=== PATIENT | male | born 1965 ===

== ENCOUNTER → 2016-04-17 | Day surgery (SDC) | payer BC ==
[~2016-04-17] VITALS: Ht 177.8 cm; Wt 79.4 kg
[2016-04-17] VITALS (13 sets, daily range): BP systolic 112–143; BP diastolic 67–82
[~2016-04-17] MED LIST: Dexamethasone 4mg/ml vial ONE; EPINEPHrine 1mg/1ml Amp ONE; Hydrogen Peroxide 120ml Bottle TOPIC ONE; LR 1000ml 1,000 ML IV SCH; LR 1000ml 1,000 ML IVLG SCH; LR 1000ml ONE; Midazolam 2mg/2ml Inj ONE; NKM; NS Irrig 1000ml ONE; Propofol 10mg/ml 20ml IV ONE; Ropivacaine 5mg/ml Vial 20ml INJ ONE; Sterile Water Irrig 1000ml IRRIG ONE; Zemuron 50mg/5ml Inj IV ONE; cefOXitin 1gm Inj ONE; fentaNYL 100 mcg/2 mL IV ONE
--- NOTE | 2016-04-17 09:17 | Pre-Procedure Note/Attestation ---
Pre-Procedure Note/Attestation Complete Prior to Procedure Planned Procedure: not applicable Procedure Narrative: Exam under anesthesia, anal fistulotomy, possible ligation of fistula tract, possible hemorrhoidectomy Indications for Procedure Pre-Operative Diagnosis: Xhsbynv-yc-alx Attestation I attest that I discussed the nature of the procedure; its benefits; risks and complications; and alternatives (and the risks and benefits of such alternatives ), prior to the procedure, with the patient (or the patient's legal membership sales representative). I attest that, if there was a reasonable possibility of needing a blood transfusion, the patient (or the patient's legal membership sales representative) was given the [facility] standardized written summary, pursuant to the [place] Blood Safety Act ([place] Health and Safety Code # 1645, as amended). I attest that I re-evaluated the patient just prior to the surgery and that there has been no change in the patient's H&P, except as documented below: ZHENG ORTEGA Apr 17, 2016 09:17
--- NOTE | 2016-04-17 10:00 | Anethesia Preoperative Eval ---
Anesthesia Pre-op PMH/ROS General Date of Evaluation: Apr 17, 2016 Time of Evaluation: 09:10 Anesthesiologist: Agustin ASA Score: ASA 1 Mallampati Score Class I : Soft palate, uvula, fauces, pillars visible Class II: Soft palate, uvula, fauces visible Class III: Soft palate, base of uvula visible Class IV: Only hard plate visible Mallampati Classification: Class II Surgeon: Vida Diagnosis: Anal fissure Surgical Procedure: Ligation of anal fistula Allergies: Coded Allergies: NO KNOWN ALLERGIES (Verified Allergy, Unknown, 02/27/16) Medications: see eMAR Past Medical History Cardiovascular: Denies: CAD, HTN, [place], arrhythmia, other, valve dz Pulmonary: Denies: COPD, DAPHNE, asthma, other Gastrointestinal/Genitourinary: Denies: CRI, ESRD, GERD, other Neurologic/Psychiatric: Denies: CVA, TIA, dementia, depression/anxiety, other Endocrine: Denies: DM, hypothyroidism, other, steroids HEENT: Denies: ROBINSON (L), ROBINSON (R), cataract (L), cataract (R), glaucoma, other Hematology/Immune: Denies: DVT, anemia, bleeding disorder, other Musculoskeletal/Integumentary: Denies: DDD, DJD, OA, RA, edema, other PMH Narrative: Denies PSxH Narrative: Anal surgery Anesthesia Pre-op Phys. Exam Physician Exam Last Vital Signs Date Time Temp Pulse Resp B/P Pulse Ox O2 Delivery O2 Flow Rate FiO2 04/17/16 08:38 97.7 56 18 124/75 96 Room Air Constitutional: NAD Neurologic: CN 2-12 intact Cardiovascular: RRR, no M/R/G Respiratory: CTA Gastrointestinal: S/NT/ND Airway Exam Mallampati Score: Class II MO: full ROM: full Teeth: intact Anesthesia Pre-op A/P Labs No contraindication Risk Assessment & Plan Assessment: Healthy male Plan: GETA, prone Status Change Before Surgery: No Pre-Antibiotics Drug: Cefoxitin Given Within 1 Hr of Incision: Yes Time Given: 09:30 INGA ROB M.D. Apr 17, 2016 10:00
--- NOTE | 2016-04-17 10:01 | Immediate Post-Op Evaluation ---
Immediate Post-Op Evalulation Immediate Post-Op Evalulation Procedure: Ligation of anal fistula Date of Evaluation: Apr 17, 2016 Time of Evaluation: 11:05 IV Fluids: 625 Blood Pressure Systolic: 143 Blood Pressure Diastolic: 82 Pulse Rate: 87 Respiratory Rate: 10 O2 Sat by Pulse Oximetry: 98 Temperature (Fahrenheit): 97.2 Pain Score (1-10): 0 Nausea: No Vomiting: No Complications No complication Patient Status: awake, patent, extubated, none Hydration Status: adequate Drug: Cefoxitin Given Within 1 Hr of Incision: Yes Time Given: 09:30 INGA ROB M.D. Apr 17, 2016 10:01
--- NOTE | 2016-04-17 11:02 | 48 Hour Post Anesthesia Eval ---
Post Anesthesia Evaluation Procedure: Ligation of anal fistula Date of Evaluation: Apr 17, 2016 Time of Evaluation: 11:30 Blood Pressure Systolic: 133 0: 71 Pulse Rate: 88 Respiratory Rate: 15 O2 Sat by Pulse Oximetry: 100 Airway: patent Nausea: No Vomiting: No Pain Intensity: 0 Hydration Status: adequate Cardiopulmonary Status: Stable Mental Status/LOC: patient returned to baseline Follow-up Care/Observations: As per surgery Post-Anesthesia Complications: No anesthetic complication Follow-up care needed: N/A INGA ROB M.D. Apr 17, 2016 11:02
--- NOTE | 2016-04-17 11:04 | Brief Operative Note ---
Immediate Post Operative Note Operative Note Pre-op Diagnosis: Appkbdr-tc-ewh, hemorrhoids Procedure: Exam under anesthesia, ligation of fistula tract (LIFT), limited hemorrhoidectomy Post-op Diagnosis: Begclbu-cr-oeo, hemorrhoids Post-op Diagnosis: same as pre-op Surgeon: Negar Ortega MD Palliative Care Specialist: Dai Ulloa MD Anesthesiologist: Dr. Kerline MD Anesthesia: general Specimen: yes Complications: none Condition: stable Estimated Blood Loss: minimal Drains: none Implant(s) used?: No NEGAR ORTEGA Apr 17, 2016 11:04
--- NOTE | 2016-04-17 11:06 | Discharge Instructions ---
Discharge Instructions Discharge Instructions Diet: regular Resume Normal Activity?: No Activity: as tolerated Follow Up Orders Pt to follow up with Dr. Ortega in 2-3 weeks. Pt to call for appointment at [phone]. Special Instructions May remove dressings tonight. Do not replace. No soaking. Shower only. For Surgical Patients May shower: Yes For Congestive Heart Failure Reminder Report to your physician any weight gain of 5 pounds or more in one week. ZHENG ORTEGA Apr 17, 2016 11:06
[2016-04-17] MEDS: Hydromorphone 0.5mg/0.5ml inj IVP PRN ×2 (11:14→11:35)
--- NOTE | 2016-04-17 21:17 | Operative Note - Dictated ---
DATE OF OPERATION: 04/17/2016 PREOPERATIVE DIAGNOSIS: Clkdubo-hf-Aod with hemorrhoids. POSTOPERATIVE DIAGNOSIS: Hzfuowm-hc-Htz with hemorrhoids. PROCEDURE: Exam under anesthesia, ligation of fistula tract, excision of right internal hemorrhoids. SURGEON: Negar Mcpherson M.D. FITTER TYPE BAR AND SEGMENT SURGEON: Dai Ulloa M.D. ANESTHESIOLOGIST: Jose Churchill M.D. ANESTHESIA: General endotracheal anesthesia. INDICATION FOR PROCEDURE: The patient is a 50-year-old male, who had a Vlxblov-hm-Wti presented to in on 12/12/2015. The patient was found to have a Tyxltam-ak-Qwa and was taken to the operating room for seton placement 02/28/2016. The patient then was scheduled for ligation of fistula tract and ligation of any large hemorrhoids. DESCRIPTION OF PROCEDURE: Upon consent of the patient, the patient was brought to the operating room and was intubated in the supine position on the gurney. Once general endotracheal anesthesia had been established, the patient was repositioned in the prone jackknife position. The patient's buttocks were then prepped and draped in usual surgical fashion. A 40 mL of 0.5% ropivacaine with epinephrine mixed with 6 mg of dexamethasone was used as perianal and pudendal block. A Hill-Hays retraction was placed in the anal canal. There was noted to be a seton in the right lateral area which was removed. The patient was found to have a fistula tract extending from the left lateral perianal region down to the dentate line. The patient's internal hemorrhoids were noted to be moderate in size but in the right lateral region there was noted to be some redundancy which was excised in a limited fashion and then passed off the field as specimen. The mucosal defect in the right side was then closed with a running 2-0 Vicryl suture. The remainder of internal hemorrhoids were not large. The attention was then turned towards the fistula tract which was probed with a lacrimal probe and a small incision was made in the perianal region perpendicular to the fistula tract. This was dissected down to the fistula tract using a right-angle clamp and dissected around the tract. Once the tract was completely dissected out, a vessel loop was used to tie off both ends of the tract. The lacrimal probe was then removed and the tract was divided using a knife. The 3-0 Vicryl sutures were used to oversew the open ends of the tract with a lock suture. This was done both proximally and distally. The tracts were probed and checked with hydrogen peroxide to make sure that there was no leakage. Once I was assured that there was good closure of both ends of the tract, the wound was irrigated. Hemostasis confirmed. The muscle was used to buttress in between the divided ends and the skin was closed with horizontal mattress 3-0 Vicryl suture. A sterile dry dressing was used as an outer dressing. Sponge, needle, and instrument counts are correct at the end of the case. The patient was awakened from anesthesia, extubated, and brought to the postanesthesia recovery room in stable condition. ESTIMATED BLOOD LOSS: Less than 5 mL. DRAINS: None. SPECIMEN: Right lateral hemorrhoid. COMPLICATIONS: None. Negar Mcpherson M.D. DR: Diane JOB#: [id number] CC: Negar Mcpherson M.D.; Fax#: [phone] Blum M.D.
== END | disposition home or self-care (01) ==
LOC: SUR 08:12
DX: K60.3 Anal fistula (principal); K64.8 Other hemorrhoids
CPT/HCPCS: 46258; J0171; J0694; J1100; J1170; J2250; J2405; J2704; J2795; J3010; J7120; 94003; 94150